=== PATIENT | male | born 1960 | race Caucasian/White ===

== ENCOUNTER 2025-05-20 13:11 | Emergency (ER) | payer OTHER ==
[~2025-05-20] VITALS: Ht 185.4 cm; Wt 88.5 kg
[2025-05-20] MEDS ORDERED: OMEPRAZOLE40 MG PO (13:31)
[2025-05-20] MEDS ORDERED: ASPIRIN EC81 MG PO (13:31)
[2025-05-20] MEDS ORDERED: FLOMAX0.4 MG PO (13:31)
[2025-05-20] MEDS ORDERED: LISINOPRIL10 MG PO (13:31)
[2025-05-20] MEDS: FAMOTIDINE 20 MG TAB PO ONE (15:06)
[2025-05-20] MEDS: DIPHENHYDRAMINE HCL 25 MG CAP PO ONE (15:06)
[2025-05-20] MEDS ORDERED: AMLODIPINE BESYL5 MG PO (15:52)
[2025-05-20 16:04] VITALS: PULSE 76; RESP 16; TEMP 97.9; O2SAT 99
== END 2025-05-20 16:04 | disposition home or self-care (01) ==
LOC: FSED 13:18
DX: T78.3XXA Angioneurotic edema, initial encounter (principal); I10 Essential (primary) hypertension; K21.9 Gastro-esophageal reflux disease without esophagitis; M54.9 Dorsalgia, unspecified; G89.29 Other chronic pain
CPT/HCPCS: 99283